=== PATIENT | male | born 1955 | race Caucasian/White ===

== ENCOUNTER 2021-08-05 16:22 | Emergency (ER) | payer MEDICARE, SELFPAY ==
[2021-08-05 16:42] VITALS: BP 148/76; PULSE 80; RESP 18; TEMP 36.7; O2SAT 99
--- NOTE | 2021-08-05 16:44 | ED.EAR ---
HPI - Ear Problem General Chief complaint: Ear Stated complaint: bad earache left side Time Seen by Provider: 08/05/21 16:44 History of Present Illness HPI Narrative: 66-year-old male, smoker with a history of hypothyroidism, hypertension, psoriasis, tinnitus from using machinery presented to the ER with a 1 day history of -- left ear fullness and pain. He used OTC ear drops following which his ear pain and hearing has diminished. His pain radiates around his left ear. No ear discharge. MD Complaint: ear pain and decreased hearing Location: left ear Duration: constant Severity: moderate Relieving factors: nothing Exacerbating factors: nothing Discharge from ear: Reports no Related Data Home Medications Medication Instructions Recorded Confirmed levothyroxine 150 mcg PO DAILY 08/05/21 08/05/21 lisinopril 30 mg PO DAILY 08/05/21 08/05/21 Allergies Allergy/AdvReac Type Severity Reaction Status Date / Time No Known Allergies Allergy Verified 08/05/21 16:41 Review of Systems Review of Systems: All systems reviewed & are unremarkable except as noted in HPI and below Constitutional: Constitutional: Reports no additional constitutional complaints Eyes: Eyes: Reports no additional eye complaints ENT: Reports system reviewed and no additional complaints, except as documented Cardiovascular: Cardiovascular: Reports as per HPI and Reports no additional cardiovascular complaints Respiratory: Respiratory: Reports as per HPI and Reports no additional respiratory complaints Gastrointestinal: Gastrointestinal: Reports as per HPI and Reports no additional gastrointestinal complaints Genitourinary: Genitourinary: Reports no additional male genitourinary complaints Musculoskeletal: Musculoskeletal: Reports as per HPI and Reports back pain Integumentary/Breasts: Comments: Psoriatic rash on the extensor surface Neurologic: Reports system reviewed and no additional complaints, except as documented Psychiatric: Psychiatric: Reports no additional psychiatric complaints Endocrine: Endocrine: Reports no additional endocrine complaints Hematologic/Lymphatic: Hematologic/Lymphatic: Reports no additional hematologic/lymphatic complaints Allergic/Immunologic: Allergic/Immunologic: Reports no additional allergic/immunologic complaints FOR[facility] Past Medical History Medical History Essential hypertension Hypothyroidism Psoriasis Smoker Tinnitus Social History Social History (Updated 08/05/21 @ 17:31 by Les Andino MD) Smoking packs per day: 2 Smoking cigarettes per day: 40.0 Years smoked: 50 Smoking pack-years: 100.00 Smoking status: Current every day smoker Tobacco type: cigarettes Second hand tobacco smoke exposure: No Exam Const: General: cooperative, healthy appearing and comfortable HENMT: Head: normal to inspection Ears: Abnormal EAC present and other ( left ear and tragus is tender on palpation. The EAC is swollen and infla) General nose exam: Normal nasal mucous membranes and turbinates present and No nasal discharge present Face and sinus: normal facial exam Mouth: Yes Normal oral and palatal mucosa present Throat: posterior oropharynx normal Eyes: General: appearance normal, both eyes and all related structures Neck: Neck: normal visual inspection and full ROM Chest: Chest palpation & inspection: normal inspection of the chest and other ( Bilaterally decreased breath sounds.) Resp: Effort & Inspection: normal respiratory effort and able to speak in complete sentences Auscultation: diminished lung sounds Cardio: Palpation: normal PMI Rate: regular rate Rhythm: regular rhythm Heart sounds: S1 normal heart sound present and S2 normal heart sound present GI: Inspection: normal to inspection, obesity and other ( Umbilical hernia) GI Palp: Yes Soft to palpation : General: Yes no CVA tenderness Back/Spine/Pelvis: B
[2021-08-05] MEDS: AMOXICILLIN 500 MG CAPSULE 1000 MG PO (17:08)
[2021-08-05] MEDS: HYDROcodone/acetaminophen (*CRX) 5-325 MG TABLET 1 TAB PO (17:08)
[2021-08-05] MEDS: NEOMYCIN/POLYMYXIN/HYDROCORT OT SUSP 10 ML BTL (*BKC) 3 DROP EACH EAR (17:08)
== END 2021-08-05 17:35 | disposition home or self-care (01) ==
PROVIDERS: Emergency Provider Internal Medicine Critical Care Medicine; PCP Nurse Practitioner Psychiatric/Mental Health
DX: H60.332 Swimmer's ear, left ear (principal); I10 Essential (primary) hypertension; E03.9 Hypothyroidism, unspecified; F17.200 Nicotine dependence, unspecified, uncomplicated
CPT/HCPCS: 99283; A9270

== ENCOUNTER 2023-04-07 12:32 | Emergency (ER) | payer MEDICARE, SELFPAY ==
[2023-04-07 12:32] VITALS: BP 137/75; PULSE 82; RESP 16; TEMP 35.9; O2SAT 94
--- NOTE | 2023-04-07 12:41 | ED.ANIMALBIT ---
HPI - Animal Bite General Chief Complaint: Animal Bite Stated Complaint: Dog bite Time Seen by Provider: 04/07/23 12:41 Source: patient Mode of arrival: ambulatory Limitations: no limitations History of Present Illness HPI narrative: 67-year-old male with a history of hypertension, hypothyroidism, tinnitus presents to the ER with -- dog bite- his neighbor's dog bit him on right calf and popliteal fossa yesterday. the dog has been vaccinated for rabies. -- Multiple puncture wounds on the right cough and right popliteal fossa with swelling of the surrounding skin and erythema. Patient had his last tetanus immunization 8 years ago. complaint: animal bite Animal: dog Description of animal: household pet Mechanism: bite Location: other ( Right calf and right popliteal fossa) Context: unprovoked Associated symptoms: erythema Related Data Patient tetanus UTD: No Home Medications Medication Instructions Recorded Confirmed levothyroxine 150 mcg tablet 150 mcg PO DAILY 08/05/21 04/07/23 lisinopril 30 mg tablet 30 mg PO DAILY 08/05/21 04/07/23 atorvastatin 20 mg tablet 20 mg PO DAILY 04/07/23 04/07/23 Allergies Allergy/AdvReac Type Severity Reaction Status Date / Time bacitracin Allergy Rash Verified 04/07/23 12:43 [From Neosporin ([id number])] neomycin Allergy Rash Verified 04/07/23 12:43 [From Neosporin ([id number])] polymyxin B Allergy Rash Verified 04/07/23 12:43 [From Neosporin ([id number])] Review of Systems Review of Systems: All systems reviewed & are unremarkable except as noted in HPI and below Constitutional: Constitutional: Reports as per HPI and Reports no additional constitutional complaints Eyes: Eyes: Reports as per HPI and Reports no additional eye complaints ENT: Reports system reviewed and no additional complaints, except as documented and Reports as per HPI Cardiovascular: Cardiovascular: Reports as per HPI and Reports no additional cardiovascular complaints Respiratory: Respiratory: Reports as per HPI, Reports cough, Reports dyspnea and Reports wheezing Gastrointestinal: Gastrointestinal: Reports as per HPI and Reports no additional gastrointestinal complaints Genitourinary: Genitourinary: Reports no additional male genitourinary complaints Musculoskeletal: Musculoskeletal: Reports no additional musculoskeletal complaints and Reports as per HPI Integumentary/Breasts: Skin/Breast: Reports system reviewed and no additional complaints, except as docu and Reports as per HPI Neurologic: Reports system reviewed and no additional complaints, except as documented and Reports as per HPI Psychiatric: Psychiatric: Reports no additional psychiatric complaints and Reports as per HPI Endocrine: Endocrine: Reports no additional endocrine complaints and Reports as per HPI Hematologic/Lymphatic: Hematologic/Lymphatic: Reports no additional hematologic/lymphatic complaints and Reports as per HPI Allergic/Immunologic: Allergic/Immunologic: Reports no additional allergic/immunologic complaints and Reports as per HPI PMFSH Past Medical History Medical History Essential hypertension Hypothyroidism Psoriasis Smoker Tinnitus Social History Social History Smoking packs per day: 2 Smoking cigarettes per day: 40.0 Years smoked: 50 Smoking pack-years: 100.00 Smoking status: Current every day smoker Tobacco type: cigarettes Second hand tobacco smoke exposure: No Exam Const: General: no acute distress Orientation/consciousness: patient oriented x3 Limitations: no limitations HENMT: Head: normal to inspection Ears: external ears normal Face/Nose/Sinus: Normal external nose present Face and sinus: normal facial exam Mouth: Yes Normal oral and palatal mucosa present Throat: posterior oropharynx normal Eyes: Conjunctivae: conjunctiv
[2023-04-07] MEDS: TETANUS,DIPHTHERIA,AC PERTUSSIS ADULT 0.5 ML (ADACEL) IM (13:12)
== END 2023-04-07 13:26 | disposition home or self-care (01) ==
LOC: CHSED 13:22
PROVIDERS: Emergency Provider Internal Medicine Critical Care Medicine; PCP Nurse Practitioner
DX: S81.851A Open bite, right lower leg, initial encounter (principal); S81.051A Open bite, right knee, initial encounter; I10 Essential (primary) hypertension; E03.9 Hypothyroidism, unspecified; F17.210 Nicotine dependence, cigarettes, uncomplicated; Z23 Encounter for immunization; W54.0XXA Bitten by dog, initial encounter
CPT/HCPCS: 90471; 90715; 99283

== ENCOUNTER 2024-02-10 13:53 | Outpatient (CLI) | payer MEDICARE, SELFPAY ==
--- NOTE | 2024-02-29 14:30 | WPDPFTINT ---
PFT Procedure Performed PFT Procedure Performed Spirometry with Pre/Post Bronchodilator Plethysmography (Lung Vol) Diffusing Cap (DLCO) Flow Vol Loop PFT Interpretation DOS: 02/10/2024 REQUESTING: SANTI Marvin REASON FOR TESTING: dyspnea on exertion PULMONARY FUNCTION TESTS Results are reliable and reproducible. Repeatability of spirometry FEV1 maneuver pre and post bronchodilator is Grade A. Spirometry: The pre-bronchodilator FEV1 is 1.60 L, 43%. The pre-bronchodilator FVC is 3.59 L, 76%. The FEV1/FVC ratio is 45%, decreased. After bronchodilator, the FEV1 is 2.08 L, 56%, 30% increase. The FVC is 4.44 L, 93%, 24% increase. The FEV1/FVC ratio is 47%. Lung volumes: The total lung capacity is 5.88 L, 79%. The residual volume is 1.79 L, 64%. The RV/TLC is 31%. The airway resistance is elevated. Diffusion: DLCO is 19.4, 66%. The DLCO/VA is 3.73, 104%. Flow volume loop: The flow volume loop shows coving of the expiratory limb. IMPRESSION: This study shows a severe obstructive ventilatory impairment with excellent response to bronchodilator, a borderline restrictive impairment, and normal diffusion capacity. No prior studies for comparison. Dayna Robertson MD
== END 2024-02-10 13:54 | disposition home or self-care (01) ==
LOC: CHSCARD 13:55
PROVIDERS: PCP Nurse Practitioner Family; Visit Provider Nurse Practitioner Family
DX: R06.09 Other forms of dyspnea (principal); R94.2 Abnormal results of pulmonary function studies
CPT/HCPCS: 94060; 94726; 94729

== ENCOUNTER 2024-02-29 13:07 | Outpatient (CLI) | payer MEDICARE, SELFPAY ==
--- NOTE | 2024-02-29 14:30 | NEURO_ITS ---
Impression: # Complains of numbness of hands, left more than right. Not diabetic. # Moderate to severe Carpal Tunnel Syndrome, left more than right. # No ulnar neuropathy. # Normal needle/EMG exam neurogenic involving bilateral APB. Nerve Conduction Studies Anti Sensory Summary Table Stim Site NR Peak (ms) P-T Amp (?V) Site1 Site2 Delta-P (ms) Dist (cm) Carlyle (m/s) Left Median Anti Sensory (2-3nd Digit) NO RESPONSE Wrist NR Wrist 2-3nd Digit 14.0 Wrist NR Wrist 2-3nd Digit 14.0 Right Median Anti Sensory (2-3nd Digit) Wrist 7.2 28.0 Wrist 2-3nd Digit 7.2 14.0 19 Wrist 7.2 16.8 Wrist 2-3nd Digit 7.2 14.0 19 Left Radial Anti Sensory (Base 1st Digit) Wrist 1.9 14.7 Wrist Base 1st Digit 1.9 0.0 Right Radial Anti Sensory (Base 1st Digit) Wrist 2.7 7.1 Wrist Base 1st Digit 2.7 0.0 Left Ulnar Anti Sensory (5th Digit) Wrist 2.9 57.8 Wrist 5th Digit 2.9 14.0 48 Right Ulnar Anti Sensory (5th Digit) Wrist 2.9 48.0 Wrist 5th Digit 2.9 14.0 48 Motor Summary Table Stim Site NR Onset (ms) O-P Amp (mV) Site1 Site2 Delta-0 (ms) Dist (cm) Carlyle (m/s) Left Median Motor (Abd Poll Brev) Wrist 6.3 0.1 Elbow Wrist 6.7 33.0 49 Elbow 13.0 0.3 Right Median Motor (Abd Poll Brev) Wrist 6.3 1.8 Elbow Wrist 6.4 33.0 52 Elbow 12.7 2.0 Left Ulnar Motor (Abd Dig Minimi) Wrist 2.7 6.4 A Elbow Wrist 6.9 36.0 52 A Elbow 9.6 1.2 Right Ulnar Motor (Abd Dig Minimi) Wrist 2.6 5.2 A Elbow Wrist 6.5 35.0 54 A Elbow 9.1 4.1 F Wave Studies NR F-Lat (ms) L-R F-Lat (ms) Left Median (Mrkrs) (Abd Poll Brev) 32.87 0.53 Right Median (Mrkrs) (Abd Poll Brev) 32.34 0.53 Left Ulnar (Mrkrs) (Abd Dig Min) 30.57 0.86 Right Ulnar (Mrkrs) (Abd Dig Min) 31.42 0.86 EMG Side Muscle Nerve Root Ins Act Fibs Amp Dur Recrt Comment Right 1stDorInt Ulnar C8-T1 Nml Nml Nml Nml Nml Right Ext Indicis Radial (Post Int) C7-8 Nml Nml Nml Nml Nml Right Ext Digitorum Radial (Post Int) C7-8 Nml Nml Nml Nml Nml Right BrachioRad Radial C5-6 Nml Nml Nml Nml Nml Right PronatorTeres Median C6-7 Nml Nml Nml Nml Nml Right Abd Poll Brev Median C8-T1 Nml Nml Nml >12ms +2 Right ABD Dig Min Ulnar C8-T1 Nml Nml Nml Nml Nml Left 1stDorInt Ulnar C8-T1 Nml Nml Nml Nml Nml Left Ext Indicis Radial (Post Int) C7-8 Nml Nml Nml Nml Nml Left Ext Digitorum Radial (Post Int) C7-8 Nml Nml Nml Nml Nml Left BrachioRad Radial C5-6 Nml Nml Nml Nml Nml Left PronatorTeres Median C6-7 Nml Nml Nml Nml Nml Left Abd Poll Brev Median C8-T1 Nml Nml Nml >12ms +3 Left ABD Dig Min Ulnar C8-T1 Nml Nml Nml Nml Nml MTDD
== END 2024-02-29 13:08 | disposition home or self-care (01) ==
PROVIDERS: PCP Nurse Practitioner Family; Visit Provider Nurse Practitioner Family
DX: R20.0 Anesthesia of skin (principal); G56.03 Carpal tunnel syndrome, bilateral upper limbs
CPT/HCPCS: 95886; 95911

== ENCOUNTER 2024-03-27 10:49 | Emergency (ER) | payer MEDICARE, SELFPAY ==
[2024-03-27 10:51] VITALS: BP 152/75; PULSE 82; RESP 22; TEMP 36.3; O2SAT 95
[2024-03-27] MEDS: methylPREDNISolone ACETATE 40 MG/ML VIAL 80 MG IM (11:35)
--- NOTE | 2024-03-27 11:49 | ED.UPPEXIN ---
HPI - Extremity Injury (Upper) General Chief Complaint: Extremity Injury, Upper Stated Complaint: LF. & RT. hands swelling with pain Time Seen by Provider: 03/27/24 10:53 Source: patient Mode of arrival: ambulatory Limitations: no limitations History of Present Illness HPI narrative: this is a 68-year-old male that presents with some pain and swelling numbness in his bilateral hands and fingers recently diagnosed with carpal tunnel syndrome. Patient started by his primary on diclofenac which patient states that it is causing some swelling and not getting any relief his pain level. MD complaint: injury to: left, right and hand Onset (ago): week(s) Other Extremity Injury: Bilateral: fingers ( pain numbness and swelling) and hand ( pain numbness and swelling) Related Data Home Medications Medication Instructions Recorded Confirmed levothyroxine 150 mcg tablet 150 mcg PO DAILY 08/05/21 04/07/23 lisinopril 30 mg tablet 30 mg PO DAILY 08/05/21 04/07/23 atorvastatin 20 mg tablet 20 mg PO DAILY 04/07/23 04/07/23 Allergies Allergy/AdvReac Type Severity Reaction Status Date / Time bacitracin Allergy Rash Verified 03/27/24 11:09 [From Neosporin ([id number])] neomycin Allergy Rash Verified 03/27/24 11:09 [From Neosporin ([id number])] polymyxin B Allergy Rash Verified 03/27/24 11:09 [From Neosporin ([id number])] Review of Systems Review of Systems: All systems reviewed & are unremarkable except as noted in HPI and below PMFSH Past Medical History Medical History Essential hypertension Hypothyroidism Psoriasis Smoker Tinnitus Social History Social History Smoking packs per day: 2 Smoking cigarettes per day: 40.0 Years smoked: 50 Smoking pack-years: 100.00 Smoking status: Current every day smoker Tobacco type: cigarettes Second hand tobacco smoke exposure: No Exam Const: General: healthy appearing and no acute distress Nutritional Appearance: well nourished Orientation/consciousness: patient oriented x3 Eyes: Conjunctivae: conjunctivae normal Chest: Chest palpation & inspection: normal inspection of the chest Resp: Effort & Inspection: normal respiratory effort Auscultation: clear to auscultation bilaterally Cardio: Rate: regular rate Rhythm: regular rhythm GI: GI Palp: Yes Soft to palpation and Yes Tenderness to palpation present (GI) Extrem: Other: Swelling numbness and tingling in bilateral hands with positive Phalen test Course Course Emergency Course: patient received 80mg IM Depo-Medrol for swelling and inflammation. Vital Signs Vital signs: Vital Signs Temperature 36.3 C L 03/27/24 10:51 Pulse Rate 82 03/27/24 10:51 Respiratory Rate 22 H 03/27/24 10:51 Blood Pressure 152/75 H 03/27/24 10:51 Pulse Oximetry 95 03/27/24 10:51 Oxygen Delivery Room Air 03/27/24 10:51 Temperature 36.3 C L 03/27/24 10:51 Pulse Rate 82 03/27/24 10:51 Respiratory Rate 22 H 03/27/24 10:51 Blood Pressure 152/75 H 03/27/24 10:51 Pulse Oximetry 95 03/27/24 10:51 Oxygen Delivery Room Air 03/27/24 10:51 Critical Care Time Critical Care Time Critical Care Time: No Discharge Plan Discharge Clinical Impression: Carpal tunnel syndrome, bilateral upper limbs Patient Disposition: Home, Self-Care Condition: Stable Instructions: Antibiotic Form, Carpal Tunnel Syndrome (DC) Additional Instructions: advised to take medicine as prescribed and follow with primary within 1 week. Prescriptions: New tramadol 50 mg tablet 50 mg PO Q6H PRN (Reason: pain) Qty: 30 0RF No Action levothyroxine 150 mcg tablet 150 mcg PO DAILY lisinopril 30 mg tablet 30 mg PO DAILY atorvastatin 20 mg tablet 20 mg PO DAILY amoxicillin-pot clavulanate [Augmentin] 500-125 mg tablet
[2024-03-27 12:15] VITALS: BP 144/60; PULSE 80; RESP 18; TEMP 36.5; O2SAT 97
== END 2024-03-27 12:15 | disposition home or self-care (01) ==
PROVIDERS: Emergency Provider Emergency Medicine; PCP Nurse Practitioner Family
DX: G56.03 Carpal tunnel syndrome, bilateral upper limbs (principal); I10 Essential (primary) hypertension; E03.9 Hypothyroidism, unspecified; F17.210 Nicotine dependence, cigarettes, uncomplicated
CPT/HCPCS: 96372; 99283; J1010

== ENCOUNTER 2024-12-25 09:41 | Outpatient (CLI) | payer MEDICARE, SELFPAY ==
--- NOTE | 2024-12-25 10:03 | ECG_ITS ---
Test Date: 2024-12-25 10:14:13 Measurements Intervals [employer] Rate: 66 P: 70 VA: 164 QRS: 95 QRSD: 96 T: 69 QT: 383 QTc: 404 Interpretive Statements SINUS RHYTHM WITH OCCASIONAL VENTRICULAR PREMATURE COMPLEXES RIGHT AXIS DEVIATION DELAYED PRECORDIAL R/S TRANSITION BORDERLINE ECG No previous ECG available for comparison Electronically Signed On 12-25-2024 10:16:02 CDT by Ricky Walls D.O.
[2024-12-25 10:04] LABS: Hematocrit 47.8 % (37.0-46.0); Hemoglobin 15.2 g/dL (12.4-15.3); Mean Corpuscular HGB Conc 31.8 g/dL (32-36); Mean Corpuscular Hemoglobin 31.1 pg (27.0-31.0); Mean Platelet Volume 10.1 fl (8.7-11.0); Platelet Count Result 261 K/mm3 (150-420); Red Blood Count 4.88 M/mm3 (4.70-6.10); Red Cell Distribution Width 13.3 % (11.6-14.4); White Blood Count 8.7 K/mm3 (4.8-10.8)
[2024-12-25 10:40] LABS: Anion Gap 5 mmol/L (4-12); Blood Urea Nitrogen 12 mg/dL (7-18); Calcium 8.8 mg/dL (8.5-10.1); Carbon Dioxide 31 mmol/L (21-32); Chloride 104 mmol/L (98-108); Estimated Glomerular Filt Rate > 60; Glucose 97 mg/dL (70-99); Osmolality Calculated 289 mOsm/kg (285-295); Potassium 4.5 mmol/L (3.5-5.1); Sodium 140 mmol/L (136-145)
--- OUTSIDE RECORDS SUMMARY | 2024-12-25 11:09 | XMS_ITS ---
Author Organization Unknown Address [address] [place] [address] [phone] Phone Care Team Providers Care Maintenance Job Titles Name Role Phone TONY Merino Attending Unavailable LAURENCE HOFFMANN PA-C Primary Unavailable Immunization Immunization Date Status Additional Notes Code Code System Tdap 09/16/2021 Completed 115 CVX Tdap 04/07/2023 Completed 115 CVX Tdap 09/16/2021 Completed 115 CVX Tdap 04/07/2023 Completed 115 CVX Influenza, split virus, trivalent, PF 05/26/2016 Completed 140 CVX Influenza, split virus, trivalent, PF 05/26/2016 Completed 140 CVX COVID-19 vaccine, vector-nr, rS-Ad26, PF, 0.5 mL 04/24/2021 Completed 212 CVX COVID-19 vaccine, vector-nr, rS-Ad26, PF, 0.5 mL 04/24/2021 Completed 212 CVX Social History Type Status Start Date End Date Code Code Syst em Smoking History Current every day smoker [id number] SNOMED CT Sex Male Medications Medication Start Date End Date Route Frequency Dose Code Code System Medication Instructions Home Meds Albuterol Sulfate HFA 0.09MG/1Actuation Inhalation Suspension 05/31/2024 Unknown INHALATION NEEDED EVERY 4 HOURS 1 unit(s) 4279061 RxNorm 1 EACH INHALATION NEEDED EVERY 4 HOURS Atorvastatin Calcium 20MG Oral Tablet 05/31/2024 Unknown ORAL ONCE A DAY 20 MILLIGRA MS [id number] RxNorm TAKE 20 MILLIGRAMS ORAL ONCE A DAY Lisinopril 20MG Oral Tablet 05/31/2024 Unknown ORAL ONCE A DAY 30 MILLIGRA MS [id number] RxNorm TAKE 30 MILLIGRAMS ORAL ONCE A DAY Symbicort 160/4.5 160MCG-4.5MCG/1 Actu Inhalation Aerosol Liquid 05/31/2024 Unknown INHALATION TWICE A DAY 1 unit(s) 7184567 RxNorm 1 EACH INHALATION TWICE A DAY Synthroid 125MCG Oral Tablet 05/31/2024 Unknown ORAL ONCE A DAY 150 MCG [id number] RxNorm TAKE 150 MCG ORAL ONCE A DAY traMADol HCl 50MG Oral Tablet 05/31/2024 Unknown BY MOUTH NEEDED EVERY 6 HOURS 1 TABLET [id number] RxNorm TAKE 1 TABLET BY MOUTH NEEDED EVERY 6 HOURS Keflex 500MG Oral Capsule 05/31/2024 Unknown BY MOUTH EVERY 8 HOURS 1 CAPSULE [id number] RxNorm TAKE 1 CAPSULE BY MOUTH EVERY 8 HOURS Hospital Discharge Instructions Should you have any questions prior to discharge, please contact a member of your healthcare team. If you have left the hospital and have any questions, please contact your primary care physician. Reason For Referral No Data Found Allergies and Adverse Reactions Allergy Substance Reaction Severity Start Date Concern Status Co de Code System NEOSPORIN Active Plan of Treatment NM Spect Perf Rest Stress Multi (47530) 10/19/2024 Stress Test Chemical 10/19/2024 NM Spect Perf Rest Stress Multi (49021) 10/19/2024 Stress Test Chemical 10/19/2024 Encounters Encounter Diagnosis Start Date Code Code Sys tem Localized edema 06/04/2024 SNOMED-CT Personal Care Team Section Performer Name Performer Role Active Date Inactive TAHIRA Heath PCP - Primary care physician DIA WASHINGTON PCP - Primary care physician 2023
--- OUTSIDE RECORDS SUMMARY | 2024-12-25 11:09 | XMS_ITS | Data Portability ---
Author Organization [facility], [address] [place] [address] Neurology ([place]) Address [address] [address] Care Team Providers Care Prototyper Name Role Phone ANAID HINOJOSA Grinder And Honer Operator Automatic [phone] April Primary Care Provider [phone] Assessment No assessment recorded. Plan of Treatment Reminders Order Date Submit Date Provider Last Modified By Organization Details Last Modified Time Details Appointments [facility] 2024 12:00P M Dr. Anaid Hinojosa Not available Not available Not available [facility] Poss 60.OH O 2024 12:00P M [facility] Supervisor Heading Room 1 Not available Not available Not available Lab None recor ded. Referral None recor ded. Procedures None recor ded. Surgeries None recor ded. Imaging None recor ded. Medication Orders None recor ded. Patient TargetsNo targets recorded. Patient InstructionsNo instructions recorded. Reason for Referral None Reported. Results Created Date Observation Date Name Description Value Unit Range Abnormal Flag Note LastModifiedBy Organization Detail LastModifiedTime 12/19/19 25 10/19/2024 NM, myoca rdial perfu margaert scan No observ ation record ed. [email or web address] Not Available 2024 12:02:59 Result Notes None recorded. Problems Name Problem SNOMED Code Status Onset Date Resolution Date Notes Provider Name and Address Organization Details Recorded Time Thallium stress test abnormal [id number] Active 025 [facility]17 Problem Notes None recorded. Procedures Surgical History None recorded. Imaging Results Imaging Date Name Status LastModified by Organiz ation Details LastModified Time 10/19/2024 NM, myocardial perfusion scan completed [email or web address] Information not available 12/18/2024 12:02:59 Procedure Notes None recorded. Medical Equipment None Reported. Medications Name Sig Start Date Stop Date Status Note LastModified by Organization Details LastModified Time atorvastatin 20 mg tablet TAKE 1 TABLET BY MOUTH ONCE DAILY active Not Available Not Available No t Available aspirin 81 mg tablet,delayed release Take 1 tablet every day by oral route. 2024 active Not Available Not Available Not Avai lable tramadol 50 mg tablet TAKE 1 TABLET BY MOUTH EVERY 6 HOURS NEEDED FOR PAIN active Not Available Not Available No t Available cephalexin 500 mg capsule TAKE 1 CAPSULE BY MOUTH EVERY 8 HOURS FOR 3 DOSES active Not Available Not Available No t Available levothyroxine 150 mcg tablet TAKE 1 TABLET BY MOUTH DAILY active Not Available Not Available No t Available nitroglycerin 0.[address] 1 tablet under tongue for chest pain every 5 minutes x 3 doses and go to ER if pain persists active Not Available Not Available No t Available lisinopril 30 mg tablet TAKE 1 TABLET BY MOUTH ONCE DAILY active Not Available Not Available No t Available metoprolol succinate ER 25 mg tablet,extende d release 24 hr TAKE 1 TABLET BY MOUTH EVERY DAY active Not Available Not Available No t Available albuterol sulfate HFA 90 mcg/actuation aerosol inhaler INHALE 2 PUFFS BY MOUTH EVERY 4 TO 6 HOURS NEEDED active Not Available Not Available No t Available Vitals Date Recorded Heart rate Oxygen saturation Oxygen saturation in Arterial blood by Pulse oximetry Body weight Body mass index (BMI) Body height Systolic blood pressure Diastolic blood pressure Provider Name and Address Organization Details Last Updated DateTime 5 62 /min 96 % 96 % 258556. 91 g 31.8 kg/m2 187.96 cm 114 mm[Hg] 56 mm[Hg] [facility] 5 11:11:43 Social History None recorded. Functional Status None recorded. Mental Status None recorded. Family History Nothing Reported. Medical History No medical history recorded. Past Encounters Encounter ID Performer Location Encounter Start Date Encounter Closed Date Diagnosis/Indication Diagnosis SNOMED-CT Code Diagnosis ICD10 Code Diagnosis Note [id number] Jose De Jesus Hinojosa MD [facility] Specialty Cardiolog y ([place]) [address] [place] [address] 12/08/2024 10:49:04 12/11/2024 10:05:21 Health Concerns Section Related Observation LastModified by Organization Detai ls LastModified Time None Recorded Concern Status LastModified by Organization Details LastModified Time None Recorded Advance Directives Directive None Recorded Payers Encounter Date Sequence Insurance Name Policy Number Policy Arias Covered Member ID Arias Member ID Guarantor Name 12/08/2024 1 [employer] (MEDICARE REPLACEMENT HMO) Wilber Rodrigues [id number] Wilber Rodrigues Notes Date Note Type Note Provider Name and Address Organization Details Recorded Time 12/08/2024 text/html Mr. Rodrigues to ld me that he lost some money 1 month ago on Wednesday night and then next day morning when he woke up he started having chest pain. He went to the emergency room. Subsequently he underwent stress test which was abnormal so patient was referred to coagulation operator. Patient mentioned that chest pain was pressure-like sensation located the substernal region without any radiation. Associate with the shortness of breath nausea and diaphoresis. He does get out of breath on exertion. He continues to smoke around 2 pack/day for 40 to 45 years. His father of the heart attack. His brother had a heart attack. EKG that was done on 10/14/2024: Sinus rhythm, multiple PVCs, poor R wave progression Nuclear stress test 09/2024: Abnormal perfusion. Small area of mild intensity fixed defect in the apical inferior wall. Mild apical inferior perfusion defect during stress. LVEF good. Assessment and plan 1) episode of chest pain concerning for angina 2) abnormal stress test Patient was given different manage options available for his condition. Patient was asked about CT coronary as well as cardiac catheterization. However he does not want to proceed with any further testing. I explained to him that if he had blockages that he can get heart attack and could from it. But he would like to continue with conservative management only. Patient advised to start taking aspirin 81 mg. Continue statin. Will send nitro 0.4 sublingual as needed for chest pain. Metoprolol succinate 25 mg daily. 3) hyperlipidemia Continue statin 4) hypertension Continue current medications. 5) current smoker Smoking cessation encouraged Patient is at increase of dosing ACS. He was explained about the diagnosis of angina as well as normal stress test but he would like to continue with current medications without any change. He does not want to undergo any further invasive procedure as well. If his symptoms then he was advised to reach out office. In the case of emergency call 911 RTC IN 6 M -Patient is advised to contact my office or seek immediate medical attention if sudden escalation of clinical symptoms. Thank you for allowing us to participate in the care of this patient. Please do not hesitate to call us or reach out to us if there is any question or concern. Review of system: General: No fever HEENT: Atraumatic Cardiovascular: See HPI Respiratory: No hemoptysis GI: No abdominal pain : No hematuria Skin: No rashes Musculoskeletal: No muscle pain Neurologic: No dizziness Hematology/lymph: No bleeding. Psychiatric: No irritability Endocrine: No heat intolerance Physical examination: GENERAL: no acute distress. NECK: Supple, without jugular venous distention. RESPIRATORY: No crackles CARDIOVASCULAR: No significant murmur is present. Regular rate and rhythm. ABDOMEN: Soft, nontender, nondistended. EXTREMITIES: No edema. MUSCULOSKELETAL: No severe kyphoscoliosis. SKIN: Without evidence of xanthoma. NEUROLOGIC: Alert and oriented X 3. Anaid Hinojosa MD [address] [place] [address], [phone], [facility] 12/08/2024 11:30:40
--- OUTSIDE RECORDS SUMMARY | 2024-12-25 11:09 | XMS_ITS ---
Author Organization Unknown Address [address] [place] [phone] Phone Care Team Providers Care Pilot Steam Yacht Name Role Phone JORGE APARICIO Attending Unavailable LAURENCE HOFFMANN PA-C Primary Unavailable [...] PF, 0.5 mL 04/24/2021 Completed 212 CVX Results TROPONIN LEVEL - Collect Kadeem e/Time: 10/14/2024 12:49 [facility] ID: [id number] [address] [place] [address], [phone] LOINC: 58195-2 Test Value Unit Reference Range Code Code System Flag TROPONIN < 0.012 ng/mL L=0.000 H=0.033 42193-9 LOINC CBC W/ DIFF - Collect Date/T du: 10/14/2024 09:43 [facility] ID: [id number] [address] [place] [address], [phone] LOINC: 71398-5 Test Value Unit Reference Range Code Code System Flag WBC 14.3 10^3uL L=4.8 H=10.8 H RBC 4.98 10^6uL L=4.60 H=6.20 HEMOGLOBIN 16.0 g/dL L=14.0 H=18.0 718-7 LOINC HEMATOCRIT 48.3 VOL% L=42.0 H=52.0 4544-3 LOINC MCV 97.0 fL L=80.0 H=94.0 H MCH 32.1 pg L=27.0 H=32.0 H MCHC 33.1 g/dL L=32.0 H=36.0 PLATELETS 280 10^3uL L=100 H=400 54759-9 LOINC RDW 13.6 % L=11.7 H=15.5 %GRAN 80.8 % L=40.0 H=70.0 28706-7 LOINC H %LYMPH 8.9 % L=20.0 H=45.0 736-9 LOINC L %MONO 8.8 % L=2.0 H=10.0 98160-6 LOINC %EOS 0.8 % L=0.0 H=6.0 713-8 LOINC %BASO 0.2 % L=0.0 H=3.0 706-2 LOINC #NEUT 11.5 10^3uL L=1.9 H=7.6 00514-1 LOINC H #LYMPH 1.3 10^3uL L=0.9 H=4.9 41087-8 LOINC #MONO 1.3 10^3uL L=0.1 H=0.9 83530-8 LOINC H #EOS 0.1 10^3uL L=0.0 H=0.6 712-0 LOINC #BASO 0.03 10^3uL L=0.00 H=0.10 88486-2 LOINC #IM GRANS 0.1 10^3uL L=0.0 H=7.0 02327-8 LOINC %IM GRANS 0.5 % L=0.0 H=5.0 72076-1 LOINC %NRB 0.0 L=0.0 H=0.2 14071-4 LOINC #NRB 0.000 L=0.000 H=0.012 32670-5 LOINC MANUAL DIFF NOT INDICATED RBC MORPH NOT INDICATED COMPREHENSIVE METABOLIC PANE L - Collect Date/Time: 10/14/2024 09:43 [facility] ID: [id number] [address] [place], [place], [phone] LOINC: 08415-1 Test Value Unit Reference Range Code Code System Flag FASTING UNKNOWN BUN 12 mg/dL L=7 H=20 3094-0 LOINC CREATININE 1.10 mg/dL L=0.66 H=1.25 2160-0 LOINC GLUCOSE 151 mg/dL L=74 H=106 2345-7 LOINC H SODIUM 138 mmol/L L=132 H=144 2951-2 LOINC POTASSIUM 3.8 mmol/L L=3.5 H=5.1 2823-3 LOINC CHLORIDE 101 mmol/L L=98 H=107 2075-0 LOINC CO2 27.0 mmol/L L=22.0 H=30.0 2028-9 LOINC ANION GAP 14 L=10 H=20 42754-9 LOINC OSMOLALITY 289 mOs/kG L=280 H=296 86832-2 LOINC BUN/CREAT 10.9 3097-3 LOINC CALCIUM 9.5 mg/dL L=8.3 H=10.5 03026-2 LOINC AST 26 U/L L=15 H=46 1920-8 LOINC ALT 27 U/L L=9 H=72 1742-6 LOINC ALKALINE PHOS 75 U/L L=38 H=126 6768-6 LOINC TOTAL BILI 1.1 mg/dL L=0.2 H=1.3 1975-2 LOINC ALBUMIN 4.2 G/dL L=3.5 H=5.0 1751-7 LOINC TOTAL PROTEIN 8.0 g/L L=6.3 H=8.2 2885-2 LOINC A/G RATIO 1.1 25950-8 LOINC AGE 69 43257-3 LOINC eGFR NON-AFR 70 ml/min eGFR AFR AMER 85 ml/min MAGNESIUM - Collect Date/Deangelo e: 10/14/2024 09:43 [facility] ID: [id number] [address] [place] [address], [phone] LOINC: 30123-2 Test Value Unit Reference Range Code Code System Flag MAGNESIUM 2.0 mg/dL L=1.6 H=2.3 LOINC TROPONIN LEVEL - Collect Kadeem e/Time: 10/14/2024 09:43 [facility] ID: [id number] [address] [place] [address], [phone] LOINC: 42077-7 Test Value Unit Reference Range Code Code System Flag TROPONIN < 0.012 ng/mL L=0.000 H=0.033 97301-4 LOINC CHEST 2V - Completed: 2024 11:12 LOINC: \TM00\12PI\DRAo\BM09\ \MRLo\ [address] [address] ---------NAME--------- NUMBER SEX AGE ADMIT DISC. XRAY# F/C TYPE RECKNAGEL MAYE BUNN [id number] M 69 10/14/24 [id number] RADHA Lugo DATE OF : 1955 M/R# [id number] #: [id number] ED-30 \MRHx\ LOCATION: TRANSCRIBED: 10/14/24 10:55 CHEST 2V 14443 COMPLETED: 33301 Chest Pain PHYSICIAN: JORGE CARUSO R A D I O L O G Y R E P O R T EXAM: XR Chest, 1 View CLINICAL INDICATION: Chest Pain TECHNIQUE: Frontal view of the chest. COMPARISON: CHEST 2V on DOS: 05/11/24 FINDINGS: LUNGS AND PLEURAL SPACES: Lingular atelectasis or pneumonia. No pneumothorax. HEART: Unremarkable. No cardiomegaly. MEDIASTINUM: Unremarkable. Normal mediastinal contour. BONES/JOINTS: Unremarkable. No acute fracture. OTHER FINDINGS: . . . IMPRESSION: Lingular atelectasis or pneumonia. HELPER MEAT \ITLo\ \UNDo\ \UNDx\ \ITLx\ Reviewed and Electronically Signed by: SAMI ARIAS Signed Date: SIGNDATE Social History Type Status Start Date End Date Code Code Syst em Smoking History Current every day smoker 109052856 SNOMED CT Sex Male Medications Medication Start Date End Date Route Frequency Dose Code Code System Medication Instructions Home Meds Albuterol Sulfate HFA 0.09MG/1Actuation Inhalation Suspension 05/31/2024 Unknown INHALATION NEEDED EVERY 4 HOURS 1 unit(s) 4870505 RxNorm 1 EACH INHALATION NEEDED EVERY 4 HOURS Atorvastatin Calcium 20MG Oral Tablet 05/31/2024 Unknown ORAL ONCE A DAY 20 MILLIGRA MS 937707 RxNorm TAKE 20 MILLIGRAMS ORAL ONCE A DAY Lisinopril 20MG Oral Tablet 05/31/2024 Unknown ORAL ONCE A DAY 30 MILLIGRA MS 455025 RxNorm TAKE 30 MILLIGRAMS ORAL ONCE A DAY Symbicort 160/4.5 160MCG-4.5MCG/1 Actu Inhalation Aerosol Liquid 05/31/2024 Unknown INHALATION TWICE A DAY 1 unit(s) 6874882 RxNorm 1 EACH INHALATION TWICE A DAY Synthroid 125MCG Oral Tablet 05/31/2024 Unknown ORAL ONCE A DAY 150 MCG 983269 RxNorm TAKE 150 MCG ORAL ONCE A DAY traMADol HCl 50MG Oral Tablet 05/31/2024 Unknown BY MOUTH NEEDED EVERY 6 HOURS 1 TABLET 093409 RxNorm TAKE 1 TABLET BY MOUTH NEEDED EVERY 6 HOURS Keflex 500MG Oral Capsule 05/31/2024 Unknown BY MOUTH EVERY 8 HOURS 1 CAPSULE 065464 RxNorm TAKE 1 CAPSULE BY MOUTH EVERY [...] Treatment NM Spect Perf Rest Stress Multi (80333) 10/19/2024 Stress Test Chemical 10/19/2024 NM Spect Perf Rest Stress Multi (36703) 10/19/2024 Stress Test Chemical 10/19/2024 Encounters Encounter Diagnosis Start Date Code Code Sys tem Cardiac arrhythmia, unspecified 10/14/2024 SNOMED-CT Personal Care Team Section Performer Name Performer Role Active Date Inactive Da TAHIRA Kiran PCP - Primary care physician DIA WASHINGTON PCP - Primary care physician 2023 Imaging Narrative Notes [facility] 10/14/2024 10:[address] [address] ---------NAME--------- NUMBER SEX AGE ADMIT DISC. XRAY# F/C TYPE RECCURTL MAYE ONI [id number] M 69 10/14/24 [id number] RADHA E.R. DATE OF : 1955 M/R# [id number] #: [id number] ED-30 LOCATION: TRANSCRIBED: 10/14/24 10:55 CHEST 2V 09886 COMPLETED: 27428 Chest Pain PHYSICIAN: JORGE SHADY RADIOLOGY REPORT EXAM: XR Chest, 1 View CLINICAL INDICATION: Chest Pain TECHNIQUE: Frontal view of the chest. COMPARISON: CHEST 2V on DOS: 05/11/24 FINDINGS: LUNGS AND PLEURAL SPACES: Lingular atelectasis or pneumonia. No pneumothorax. HEART: Unremarkable. No cardiomegaly. MEDIASTINUM: Unremarkable. Normal mediastinal contour. BONES/JOINTS: Unremarkable. No acute fracture. OTHER FINDINGS: . . . IMPRESSION: Lingular atelectasis or pneumonia. HELPER MEAT Reviewed and Electronically Signed by: SAMI ARIAS Signed Date: SIGNDATE
--- OUTSIDE RECORDS SUMMARY | 2024-12-25 11:10 | XMS_ITS ---
Author Organization Unknown Address [address] [place] [phone] Phone Care Team Providers Care Visual And Stock Associate Name Role Phone JORGE APARICIO Attending Unavailable [...] em Smoking History Current every day smoker 573610229 SNOMED CT Sex Male Medications Medication Start Date End Date Route Frequency Dose Code Code System Medication Instructions Home Meds Albuterol Sulfate HFA 0.09MG/1Actuation Inhalation Suspension 05/31/2024 Unknown INHALATION NEEDED EVERY 4 HOURS 1 unit(s) 9070568 RxNorm 1 EACH INHALATION NEEDED EVERY 4 HOURS Atorvastatin Calcium 20MG Oral Tablet 05/31/2024 Unknown ORAL ONCE A DAY 20 MILLIGRA MS 728399 RxNorm TAKE 20 MILLIGRAMS ORAL ONCE A DAY Lisinopril 20MG Oral Tablet 05/31/2024 Unknown ORAL ONCE A DAY 30 MILLIGRA MS 737343 RxNorm TAKE 30 MILLIGRAMS ORAL ONCE A DAY Symbicort 160/4.5 160MCG-4.5MCG/1 Actu Inhalation Aerosol Liquid 05/31/2024 Unknown INHALATION TWICE A DAY 1 unit(s) 6953765 RxNorm 1 EACH INHALATION TWICE A DAY Synthroid 125MCG Oral Tablet 05/31/2024 Unknown ORAL ONCE A DAY 150 MCG 014391 RxNorm TAKE 150 MCG ORAL ONCE A DAY traMADol HCl 50MG Oral Tablet 05/31/2024 Unknown BY MOUTH NEEDED EVERY 6 HOURS 1 TABLET 062428 RxNorm TAKE 1 TABLET BY MOUTH NEEDED EVERY 6 HOURS Keflex 500MG Oral Capsule 05/31/2024 Unknown BY MOUTH EVERY 8 HOURS 1 CAPSULE 232690 RxNorm TAKE 1 CAPSULE BY MOUTH EVERY [...] Treatment NM Spect Perf Rest Stress Multi (50239) 10/19/2024 Stress Test Chemical 10/19/2024 NM Spect Perf Rest Stress Multi (93801) 10/19/2024 Stress Test Chemical 10/19/2024 Encounters Encounter Diagnosis Start Date Code Code Sys tem Abnormal result of other cardiovascular function study 10/19/2024 SNOMED-CT Personal Care Team Section Performer Name Performer Role Active Date Inactive TAHIRA Heath PCP - Primary care physician DIA WASHINGTON PCP - Primary care physician 2023
--- OUTSIDE RECORDS SUMMARY | 2024-12-25 11:10 | XMS_ITS ---
Author Organization Unknown Address [address] [place] [phone] Phone Care Team Providers Care Publicist Name Role Phone LAURENCE HOFFMANN PA-C Attending Unavailable Immunization Immunization Date Status Additional Notes [...] 0.5 mL 04/24/2021 Completed 212 CVX Results CBC W/ DIFF - Collect Date/T du: 05/11/2024 12:08 [facility] ID: [id number] [place] [address], [phone] LOINC: 48835-8 Test Value Unit Reference Range Code Code System Flag WBC 11.0 10^3uL L=4.8 H=10.8 H RBC 4.45 10^6uL L=4.60 H=6.20 L HEMOGLOBIN 14.5 g/dL L=14.0 H=18.0 718-7 LOINC HEMATOCRIT 44.2 VOL% L=42.0 H=52.0 4544-3 LOINC MCV 99.3 fL L=80.0 H=94.0 H MCH 32.6 pg L=27.0 H=32.0 H MCHC 32.8 g/dL L=32.0 H=36.0 PLATELETS 248 10^3uL L=100 H=400 30774-4 LOINC RDW 13.7 % L=11.7 H=15.5 %GRAN 70.1 % L=40.0 H=70.0 73024-1 LOINC H %LYMPH 16.2 % L=20.0 H=45.0 736-9 LOINC L %MONO 7.4 % L=2.0 H=10.0 62827-9 LOINC %EOS 4.8 % L=0.0 H=6.0 713-8 LOINC %BASO 0.5 % L=0.0 H=3.0 706-2 LOINC #NEUT 7.7 10^3uL L=1.9 H=7.6 67358-6 LOINC H #LYMPH 1.8 10^3uL L=0.9 H=4.9 71598-2 LOINC #MONO 0.8 10^3uL L=0.1 H=0.9 76429-3 LOINC #EOS 0.5 10^3uL L=0.0 H=0.6 712-0 LOINC #BASO 0.06 10^3uL L=0.00 H=0.10 04207-6 LOINC #IM GRANS 0.1 10^3uL L=0.0 H=7.0 82940-1 LOINC %IM GRANS 1.0 % L=0.0 H=5.0 04243-1 LOINC %NRB 0.0 L=0.0 H=0.2 09235-9 LOINC #NRB 0.000 L=0.000 H=0.012 08535-6 LOINC MANUAL DIFF NOT INDICATED RBC MORPH NOT INDICATED COMPREHENSIVE METABOLIC PANE L - Collect Date/Time: 05/11/2024 12:08 [facility] ID: [id number] [address] [place], [place], [phone] LOINC: 46911-4 Test Value Unit Reference Range Code Code System Flag FASTING NO BUN 17 mg/dL L=7 H=20 3094-0 LOINC CREATININE 1.00 mg/dL L=0.66 H=1.25 2160-0 LOINC GLUCOSE 111 mg/dL L=74 H=106 2345-7 LOINC H SODIUM 138 mmol/L L=132 H=144 2951-2 LOINC POTASSIUM 4.3 mmol/L L=3.5 H=5.1 2823-3 LOINC CHLORIDE 101 mmol/L L=98 H=107 2075-0 LOINC CO2 29.0 mmol/L L=22.0 H=30.0 2028-9 LOINC ANION GAP 12 L=10 H=20 23589-4 LOINC OSMOLALITY 288 mOs/kG L=280 H=296 72817-9 LOINC BUN/CREAT 17.0 3097-3 LOINC CALCIUM 9.7 mg/dL L=8.3 H=10.5 15559-8 LOINC AST 25 U/L L=15 H=46 1920-8 LOINC ALT 27 U/L L=9 H=72 1742-6 LOINC ALKALINE PHOS 87 U/L L=38 H=126 6768-6 LOINC TOTAL BILI 0.7 mg/dL L=0.2 H=1.3 1975-2 LOINC ALBUMIN 4.1 G/dL L=3.5 H=5.0 1751-7 LOINC TOTAL PROTEIN 7.7 g/L L=6.3 H=8.2 2885-2 LOINC A/G RATIO 1.1 21401-8 LOINC AGE 68 56178-2 LOINC eGFR NON-AFR 79 ml/min eGFR AFR AMER 96 ml/min CHEST 2V - Completed: 2023 12:13 LOINC: EXAM DESCRIPTION: CHEST 2V REASON FOR STUDY: pre op exam/ no chest complaints Duration: pre op exam Smoking History: TECHNIQUE: Two views COMPARISON: None available FINDINGS: Heart size is normal. Central vascularity are somewhat obscured. Perihilar interstitial densities may indicate developing vascular congestion or peribronchial inflammation versus scarring. Dense consolidation, effusion or pneumothorax. Bony hypertrophic changes obscures the apices. IMPRESSION: Perihilar interstitial densities may indicate developing vascular congestion or peribronchial inflammation. Chronic scarring not excluded THIS IS AN ELECTRONICALLY VERIFIED FINAL REPORT 05/12/2024 8:00 AM - Electronically signed by Maye Jimenez M.D. RB: CAYETANO Report ID: [id number] Reading Location: [place] [address] Social History Type Status Start Date End Date Code Code Syst em Smoking History Current every day smoker [id number] SNOMED CT Sex Male Medications Medication Start Date End Date Route Frequency Dose Code Code System Medication Instructions Home Meds Albuterol Sulfate HFA 0.09MG/1Actuation Inhalation Suspension 05/31/2024 Unknown INHALATION NEEDED EVERY 4 HOURS 1 unit(s) 3097649 RxNorm 1 EACH INHALATION NEEDED EVERY 4 HOURS Atorvastatin Calcium 20MG Oral Tablet 05/31/2024 Unknown ORAL ONCE A DAY 20 MILLIGRA MS 357273 RxNorm TAKE 20 MILLIGRAMS ORAL ONCE A DAY Lisinopril 20MG Oral Tablet 05/31/2024 Unknown ORAL ONCE A DAY 30 MILLIGRA MS 981189 RxNorm TAKE 30 MILLIGRAMS ORAL ONCE A DAY Symbicort 160/4.5 160MCG-4.5MCG/1 Actu Inhalation Aerosol Liquid 05/31/2024 Unknown INHALATION TWICE A DAY 1 unit(s) 8993794 RxNorm 1 EACH INHALATION TWICE A DAY Synthroid 125MCG Oral Tablet 05/31/2024 Unknown ORAL ONCE A DAY 150 MCG 148979 RxNorm TAKE 150 MCG ORAL ONCE A DAY traMADol HCl 50MG Oral Tablet 05/31/2024 Unknown BY MOUTH NEEDED EVERY 6 HOURS 1 TABLET 465370 RxNorm TAKE 1 TABLET BY MOUTH NEEDED EVERY 6 HOURS Keflex 500MG Oral Capsule 05/31/2024 Unknown BY MOUTH EVERY 8 HOURS 1 CAPSULE 491148 RxNorm TAKE 1 CAPSULE BY MOUTH EVERY [...] Treatment NM Spect Perf Rest Stress Multi (91685) 10/19/2024 Stress Test Chemical 10/19/2024 NM Spect Perf Rest Stress Multi (34761) 10/19/2024 Stress Test Chemical 10/19/2024 Encounters Encounter Diagnosis Start Date Code Code Sys tem Encounter for other preprocedural examination 05/11/20 24 SNOMED-CT Personal Care Team Section Performer Name Performer Role Active Date Inactive TAHIRA Heath PCP - Primary care physician DIA WASHINGTON PCP - Primary care physician 2023 Imaging Narrative Notes
--- OUTSIDE RECORDS SUMMARY | 2024-12-25 11:10 | XMS_ITS | Clinical Summary ---
Author Organization [facility] Address [facility] [place] [address] Care Team Providers Care Food Service Director Name Role Phone Unavailable Primary Care Provider Unavailabl e Encounters Date Type Department Care Team Description 10/19/2024 [facility] [address] [place] [address] Scanned, Doc Pccl Nuclear Medicine Report (SCAN) from Last 3 Months Social History Tobacco Use Types Packs/Day Years Used Date Smoking Tobacco: Never Assessed Sex and Gender Information Value Date Recorded Sex Assigned at Not on file Legal 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 Gender Identity Not on file Sexual Orientation Not on file Plan of Treatment Health Maintenance Due Date Last Done Comments Colorectal Cancer Screening Colonoscopy (10 Years) 1955 Hepatitis C 1972 DTaP, Tdap and Td Vaccines ( 1 - Tdap) 1973 Zoster Vaccines (1 of 2) 2004 Pneumococcal Vaccine: 65+ Ye ars (1 of 1 - PCV) 2019 COVID-19 Vaccine ( - 2023-2 5 season) 2024 RSV Immunization or 60+ Years (1 - 1-dose 75+ series) 2029 Meningococcal B Vaccine Aged Out No l onger eligible based on patient's age to complete this topic Meningococcal Vaccine Aged Out No pasha devendra eligible based on patient's age to complete this topic RSV Immunizations Under 20 Months Aged Out No longer eligible based on patient's age to complete this topic Procedures Procedure Name Priority Date/Time Associated Diagnosis Comments STRESS TEST (SCAN ORDER) Routine 10/19/2024 from Last 3 Months Results * STRESS TEST (10/19/2024) us Doc Pccl Scanned SCANNING Final Result [facility] from Last 3 Months
--- OUTSIDE RECORDS SUMMARY | 2024-12-25 11:10 | XMS_ITS ---
Author Organization Unknown Address [address] [place] [phone] Phone Care Team Providers Care [employer]ator [employer] Name Role Phone GARRETT ANAID Attending Unavailable LAURENCE HOFFMANN PA-C Primary Unavailable [...] em Smoking History Current every day smoker [id number] SNOMED CT Sex Male Medications Medication Start Date End Date Route Frequency Dose Code Code System Medication Instructions Home Meds Albuterol Sulfate HFA 0.09MG/1Actuation Inhalation Suspension 05/31/2024 Unknown INHALATION NEEDED EVERY 4 HOURS 1 unit(s) 8403081 RxNorm 1 EACH INHALATION NEEDED EVERY 4 HOURS Atorvastatin Calcium 20MG Oral Tablet 05/31/2024 Unknown ORAL ONCE A DAY 20 MILLIGRA MS 901320 RxNorm TAKE 20 MILLIGRAMS ORAL ONCE A DAY Lisinopril 20MG Oral Tablet 05/31/2024 Unknown ORAL ONCE A DAY 30 MILLIGRA MS 225590 RxNorm TAKE 30 MILLIGRAMS ORAL ONCE A DAY Symbicort 160/4.5 160MCG-4.5MCG/1 Actu Inhalation Aerosol Liquid 05/31/2024 Unknown INHALATION TWICE A DAY 1 unit(s) 1557296 RxNorm 1 EACH INHALATION TWICE A DAY Synthroid 125MCG Oral Tablet 05/31/2024 Unknown ORAL ONCE A DAY 150 MCG 252896 RxNorm TAKE 150 MCG ORAL ONCE A DAY traMADol HCl 50MG Oral Tablet 05/31/2024 Unknown BY MOUTH NEEDED EVERY 6 HOURS 1 TABLET 499699 RxNorm TAKE 1 TABLET BY MOUTH NEEDED EVERY 6 HOURS Keflex 500MG Oral Capsule 05/31/2024 Unknown BY MOUTH EVERY 8 HOURS 1 CAPSULE 920984 RxNorm TAKE 1 CAPSULE BY MOUTH EVERY [...] Treatment NM Spect Perf Rest Stress Multi (48366) 10/19/2024 Stress Test Chemical 10/19/2024 NM Spect Perf Rest Stress Multi (33499) 10/19/2024 Stress Test Chemical 10/19/2024 Encounters Encounter Diagnosis Start Date Code Code Sys tem Chest pain, unspecified 12/08/2024 SNOM ED-CT Personal Care Team Section Performer Name Performer Role Active Date Inactive TAHIRA Heath PCP - Primary care physician DIA WASHINGTON PCP - Primary care physician 2023
--- OUTSIDE RECORDS SUMMARY | 2024-12-25 11:11 | XMS_ITS ---
Author Organization Unknown Address [address] [place] [phone] Phone Care Team Providers Care Mobile Mechanic Name Role Phone AMALIA WAN Attending Unavailable [facility] Unavailable PADMINI ALVARES Primary Unavailable Immunization Immunization Date Status Additional [...] 0.5 mL 04/24/2021 Completed 212 CVX Results BEDSIDE GLUCOSE - Collect Da te/Time: 05/31/2024 07:03 [facility] ID: [id number] [place] [address], [id number] LOINC: 31932-9 Test Value Unit Reference Range Code Code System Flag BEDSIDE GLUCOSE 107 mg/dl L=74 H=106 57791-1 LOINC H Social History Type Status Start Date End Date Code Code Syst em Smoking History Current every day smoker [id number] SNOMED CT Sex Male Vital Signs Vital Sign Value Unit [place] Value [place] Unit Date/Time Recent/Initial? Code Code System Body Mass Index 34.41 kg/m2 05/31/2024 07:26 Most Recent 19315 -5 LOINC Body Mass Index 34.41 kg/m2 05/15/2024 15:01 Initial 26081 -5 [facility] Systolic Blood Pressure 178 mm[Hg] 05/31/2024 07:00 Initial 8480- 6 [facility] Diastolic Blood Pressure 84 mm[Hg] 05/31/2024 07:00 Initial 8462- 4 [facility] Body Surface Area 2.52 m2 05/31/2024 07:26 Most Recent 3140- 1 [facility] Body Surface Area 2.52 m2 05/15/2024 15:01 Initial 3140- 1 [facility] Height 187.960 0 cm 74.00 in 05/31/2024 07:26 Most Recent 8302- 2 [facility] Height 187.960 0 cm 74.00 in 05/15/2024 15:01 Initial 8302- 2 [facility] O2 Saturation 93 % 2023 07:00 Initial 60088 -5 [facility] Pulse 77.0 /min 05/31/2024 07:00 Initial 8867- 4 [facility] Respiration 20 /min 05/31/20 07:00 Initial 9279- 1 [facility] Temperature 37.0 Karolyn 98.6 F 05/31/20 07:00 Initial 8310- 5 [facility] Weight 121.56 kg 268.00 lbs 05/31/2024 07:26 Most Recent 29985 -7 [facility] Weight 121.56 kg 268.00 lbs 05/15/2024 15:01 Initial 65943 -7 [facility] Medications Medication Start Date End Date Route Frequency Dose Code Code System Medication Instructions Home Meds Albuterol Sulfate HFA 0.09MG/1Actuation Inhalation Suspension 05/31/2024 Unknown INHALATION NEEDED EVERY 4 HOURS 1 unit(s) 1829032 RxNorm 1 EACH INHALATION NEEDED EVERY 4 HOURS Atorvastatin Calcium 20MG Oral Tablet 05/31/2024 Unknown ORAL ONCE A DAY 20 MILLIGRA MS 259942 RxNorm TAKE 20 MILLIGRAMS ORAL ONCE A DAY Lisinopril 20MG Oral Tablet 05/31/2024 Unknown ORAL ONCE A DAY 30 MILLIGRA MS 405664 RxNorm TAKE 30 MILLIGRAMS ORAL ONCE A DAY Symbicort 160/4.5 160MCG-4.5MCG/1 Actu Inhalation Aerosol Liquid 05/31/2024 Unknown INHALATION TWICE A DAY 1 unit(s) 4290250 RxNorm 1 EACH INHALATION TWICE A DAY Synthroid 125MCG Oral Tablet 05/31/2024 Unknown ORAL ONCE A DAY 150 MCG 448724 RxNorm TAKE 150 MCG ORAL ONCE A DAY traMADol HCl 50MG Oral Tablet 05/31/2024 Unknown BY MOUTH NEEDED EVERY 6 HOURS 1 TABLET 893124 RxNorm TAKE 1 TABLET BY MOUTH NEEDED EVERY 6 HOURS Keflex 500MG Oral Capsule 05/31/2024 Unknown BY MOUTH EVERY 8 HOURS 1 CAPSULE 357699 RxNorm TAKE 1 CAPSULE BY MOUTH EVERY 8 HOURS Hospital Discharge Instructions Should you have any questions prior to discharge, please contact a member of your healthcare team. If you have left the hospital and have any questions, please contact your primary care physician. Reason For Referral No Data Found Procedures Procedure Name Date Status Code Code Syste m Neuroplasty and/or transposi tion; median nerve at carpal tunnel; (-LT Left 05/31/2024 completed 27871 CPT Anesthesia for all procedure s on nerves, muscles, tendons, fascia, and bur 05/31/2024 completed 10362 CPT Allergies and Adverse Reactions Allergy Substance Reaction Severity Start Date Concern Status Co de Code System NEOSPORIN Active Plan of Treatment NM Spect Perf Rest Stress Multi (32019) 10/19/2024 Stress Test Chemical 10/19/2024 NM Spect Perf Rest Stress Multi (14892) 10/19/2024 Stress Test Chemical 10/19/2024 Encounters Encounter Diagnosis Start Date Code Code Sys tem Carpal tunnel syndrome, left upper limb 05/31/2024 SNOMED-CT Personal Care Team Section Performer Name Performer Role Active Date Inactive TAHIRA Heath PCP - Primary care physician DIA WASHINGTON PCP - Primary care physician 2023
== END 2024-12-25 09:42 | disposition home or self-care (01) ==
LOC: CHSLAB 09:51
PROVIDERS: PCP Nurse Practitioner Family
DX: R94.39 Abnormal result of other cardiovascular function study (principal); R94.31 Abnormal electrocardiogram [ECG] [EKG]
CPT/HCPCS: 36415; 80048; 85027; 93005